=== PATIENT | male | born 1940 | race Caucasian/White ===

== ENCOUNTER → 2020-09-16 12:56 | Outpatient (CLI) | payer OTHER, MEDICARE, SELFPAY ==
--- NOTE | 2020-09-16 13:04 | CT_ITS ---
STUDY: CT CHEST WITHOUT CONTRAST REASON FOR EXAM: Male, 80 years old. HX OF NSCLC. Diabetes. No previous chest surgeries RADIATION DOSAGE (If Supplied By Facility): CTDIvol = ( 17.72 ) mGy, DLP = ( 726.33 ) mGycm TECHNIQUE: Transaxial imaging was performed without the administration of intravenous contrast material. Multiplanar coronal and sagittal images were reformatted. Individualized dose optimization techniques were used for this CT. COMPARISON: Comparison is made with prior study 01/25/2016. FINDINGS: Stable small benign-appearing bilateral axillary lymph nodes. Stable calcified lymph node in the left upper lobe as well as in the left lower lobe. There is evidence of emphysematous changes worse in the upper lobes. Surgical sutures are seen in the right infrahilar region. There is been resection of the nodular density in the right lower lobe. There now is evidence of the airspace disease in the right lower lobe. This may represent either post radiation fibrosis or new infiltrate. Clinical correlation is suggested. Normal heart and pericardium. There are multiple small lymph nodes within the mediastinum, which are normal in size and morphology most compatible with reactive lymph hyperplasia. Calcified left hilar lymph nodes. Normal unenhanced pulmonary arteries. There is atherosclerotic calcification of the aortic arch with tortuosity and elongation of the aortic arch and descending thoracic aorta. There are degenerative changes of the thoracic spine. There is no demonstrated abnormality of the visualized upper abdomen. CT/Chest without Contrast IMPRESSION: Status post resection of a nodule in the right lower lobe with the postoperative changes and airspace disease and bronchial branch in the posterior segment of the right lower lobe. This may represent either post radiation scarring/pneumonitis or early infiltrate. Scattered left calcified granulomas. Electronically Signed: Bennie Ordonez MD at 15:43 EDT , Service support ,
== END ==
DX: Z85.118 Personal history of other malignant neoplasm of bronchus and lung (principal)
CPT/HCPCS: 71250

== ENCOUNTER 2021-08-18 09:35 | Emergency (ER) | payer OTHER, MEDICARE, SELFPAY ==
[2021-08-18 09:35] VITALS: BP 159/99; PULSE 107; RESP 18; TEMP 36.8; O2SAT 91; BMI 37.3
[2021-08-18 09:49] VITALS: BP 135/83; PULSE 92; RESP 18; O2SAT 93
--- NOTE | 2021-08-18 09:49 | EKG12_ITS ---
Test Reason : SOB Blood Pressure : / mmHG Vent. Rate : 105 BPM Atrial Rate : 105 BPM P-R Int : 130 ms QRS Dur : 130 ms QT Int : 376 ms P-R-T Axes : 055 -81 060 degrees QTc Int : 496 ms Sinus tachycardia with Premature atrial complexes Right bundle branch block Left anterior fascicular block Bifascicular block Abnormal ECG Confirmed by MIKI KENNEY, ALF ([id number]), editorial cartoonist MANN MILTON ([id number]) on 08/19/2021 10:20:03 A M Referred By: PASTORA Confirmed By:DAVID LIVINGSTON MD
--- NOTE | 2021-08-18 09:50 | ED.VIS.DYS ---
HPI History of Present Illness Chief Complaint: Shortness of Breath Informant: patient Narrative Narrative: Patient brought by EMS from home due to shortness of breath. Patient wears chronic 2 L of oxygen. He is has a home concentrator runs 24 hours a day. He woke up this morning he was short of breath he states there is a humidifier connection states it was not bubbling he checked the oxygen he did not seem to have enough oxygen coming out. He felt short of breath. He does have portable tanks at home he states one was empty he tried to connect to another one. History of anxiety with his concerns he contacted EMS. Reported on arrival he was in the mid 70s they placed him on 3 L of oxygen to get up in the 90s he was placed back on 2 L on arrival. He reports he had a dry cough for the past 2 days no fevers or headaches. No chest pains no abdominal pain. Remote tobacco. History of lung cancer with partial lobectomy in the past he states diagnosed back in 2010. No current chemotherapy or radiation. He states his breathing is improving currently. States mild anxiety currently with a history of this since he was in his 30s. His supply company is through the [employer]. He states he tried contacting him this morning unable to get through. Reports he is Covid vaccinated with the booster in the last 6 months. [facility] Medical History Anxiety COPD (chronic obstructive pulmonary disease) Former smoker HLD (hyperlipidemia) Hypertension Lung cancer On home oxygen therapy Home Medications Spiriva with HandiHaler 2 puff INHALATION DAILY 01/25/16 [History Last Taken 01/25/16] Tums Ultra 1,177 mg PO PRN PRN 01/25/16 [History Last Taken 01/24/16] aspirin 81 mg PO DAILY@0800 01/25/16 [History Last Taken 01/25/16] budesonide-formoterol [Symbicort] 2 puff INHALATION BID 01/25/16 [History Last Taken 01/25/16] buspirone 10 mg PO TID 01/25/16 [History Last Taken 01/25/16] lisinopril 10 mg PO DAILY 01/25/16 [History Last Taken 01/25/16] multivitamin [Daily Multiple] 1 ea PO DAILY 01/25/16 [History Last Taken 01/25/16] omeprazole 20 mg PO DAILY 01/25/16 [History Last Taken 01/25/16] simvastatin 40 mg PO QHS 01/25/16 [History Last Taken 01/24/16] alprazolam 0.25 mg PO TID PRN PRN #0 01/29/16 [Rx Last Taken 01/24/16] levalbuterol tartrate [Xopenex HFA] 1 puff INHALATION Q4H PRN #1 inh 01/29/16 [Rx Last Taken Unknown] albuterol 2 mcg INHALATION 4X/DAY 08/18/21 [History Last Taken Unknown] azithromycin 500 mg PO Q24 08/18/21 [History Last Taken Unknown] bisacodyl 5 mg PO BID PRN 08/18/21 [History Last Taken Unknown] cyanocobalamin (vitamin B-12) 1,000 mcg PO DAILY 08/18/21 [History Last Taken Unknown] furosemide [Lasix] 10 mg PO DAILY 08/18/21 [History Last Taken Unknown] hydroxyzine pamoate 50 mg PO 4X/DAY 08/18/21 [History Last Taken Unknown] mometasone 2 puff INHALATION BID 08/18/21 [History Last Taken Unknown] prednisone 10 mg PO DAILY 08/18/21 [History Last Taken Unknown] trazodone 100 mg PO QHS 08/18/21 [History Last Taken Unknown] Allergy/AdvReac Type Severity Reaction Status Date / Time No Known Allergies Allergy Verified 01/25/16 16:05 Surgical History History of lobectomy of lung Social History Smoking Status: Former smoker ROS ROS ED Constitutional Constitutional ED: Denies chills, fever(s) or sweats Eyes Eyes: Denies change in vision ENT ENT ED: Denies dysphagia or sore throat Cardiovascular Cardiovascular: Denies chest pain, leg edema, palpitations or racing heartbeat Respiratory/Chest Respiratory/Chest: Reports cough and dyspnea; Denies dyspnea on exertion Gastrointestinal Gastrointestinal: Denies abdominal pain, diarrhea, nausea or vomiting Genitourinary Genitourinary ED: Denies dysuria, hematuria or urinary frequency Musculoskeletal Musculoskeletal: Denies back pain, extremity pain or neck pain Integumentary Denies rash or wounds Neurologic Neurologic: Denies headache(s), paresthesias or weakness EXAM Physical Exam Const Vital Signs: 08/18/21 09:35 08/18/21 09:49 08/18/21 11:55 Temperature 98.3 F Temperature Source Axillary Pulse Rate 107 H 92 92 Respiratory Rate 18 18 20 H Blood Pressure 159/99 H 135/83 H 143/94 H Blood Pressure Mean 119 100 110 Pulse Ox 91 93 95 Oxygen Delivery Method Nasal Cannula Nasal Cannula Nasal Cannula Oxygen Flow Rate (L/min) 2 2 Positive well nourished and well developed Constitutional Narrative: Currently 2 L nasal cannula no respiratory distress. General Appearance ED: well developed and NAD HEENT Reports moist mucous membranes normocephalic and atraumatic Eyes PERRL, EOMs intact bilaterally and conjunctivae normal General Eye ED: Yes normal appearance of both eyes Neck no lymphadenopathy and supple General: Negative for tenderness Chest Wall Chest: Negative for tenderness Resp normal respiratory effort, normal air movement and clear to auscultation bilaterally Effort and Inspection: symmetric chest movement; Negative for respiratory distress Cardio regular rate, regular rhythm and no murmurs Peripheral Pulses: pulses 2+ throughout GI normal to inspection, nondistended, normoactive bowel sounds and non-tender Palpation: Negative for guarding or rebound tenderness present Back/Spine no CVA tenderness and no thoracic nor lumbar tenderness Extremity normal to inspection General Extremety ED: Negative for edema or tenderness General Extremity: Negative for edema Neuro oriented x3 and no sensory deficits noted Sensorium / Orientation: awake and alert Skin no rashes or lesions noted and no wounds MDM MDM MDM Narrative Medical decision making narrative: Patient on his 2 L oxygen is stable pulse ox in the 90s. He was off oxygen when he had symptoms. Chest x-ray negative Covid negative labs are stable. Reevaluation remained stable. I discussed with his daughter over the phone, patient spouse on the phone working [facility] who trouble shot and was able to fix his concentrator at home. Further discussion has been talking about skilled versus rehab here due to increasing weakness recently. I discussed with patient about this. He states he has been feeling weaker not moving around the home as much. Confirmed by daughter. I discussed that he may benefit from rehab for which she agrees. Social work was involved evaluated was able to place him for the emergency department to the rehab center here. Patient discharged to rehab. Lab Data Attestation: I reviewed the patient's lab results. Labs: Laboratory Results - last 24 hr 08/18/21 08/18/21 10:15 10:15 WBC 9.8 RBC 4.12 L Hgb 13.1 Hct 40.3 MCV 97.8 H MCH 31.8 MCHC 32.5 RDW Std Deviation 50.6 H RDW Coeff of Regina 14.0 Plt Count 240 MPV 9.8 Immature Gran % (Auto) 0.400 Neut % (Auto) 55.9 Lymph % (Auto) 36.8 Ferry % (Auto) 5.2 Eos % (Auto) 1.3 Baso % (Auto) 0.4 Absolute Neuts (auto) 5.5 Absolute Lymphs (auto) 3.62 Nucleated RBC % 0 Sodium 141 Potassium 3.7 Chloride 102 Carbon Dioxide 35.0 H Anion Gap 4 L BUN 12 Creatinine 1.27 Estim Creat Clear Calc 45.63 Est GFR (MDRD) Af Amer 70 Est GFR (MDRD) Non-Af 58 L BUN/Creatinine Ratio 9.4 L Glucose 116 H Calcium 9.0 Radiography Chest X-Ray - ED: 1 View, Read by ED Physician and Read by Radiologist Diagnostic Testing: Clinical Impression(s) from Imaging Studies Chest X-Ray 08/18/21 10:20 IMPRESSION: Hyperinflation and COPD with her emphysematous changes in the right upper lobe. Prior right infrahilar surgical intervention with stable scarring at the lung bases. Electronically Signed: Bennie Ordonez MD at 10:35 EST , EKG Initial EKG: Attestation: I personally reviewed and interpreted this EKG as follows: Comments: Sinus rhythm 105, no ST or T wave changes. 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 There is a right bundle branch block. Compared to EKG in 2016 right bundle branch is new similar changes with left anterior fascicular block. Prior EKG tracings: available for review Discharge Plan Triage Chief Complaint: Shortness of Breath ED Provider: Karl Mathur Dx/Rx/DC Orders Clinical Impression: Acute dyspnea, Oxygen dependent, Weakness Instructions: ED Dyspnea Prescriptions: No Action buspirone 5 MG tablet 10 mg PO TID RF: 0 aspirin 325 MG tablet 81 mg PO DAILY@0800 RF: 0 simvastatin 40 MG tablet 40 mg PO QHS RF: 0 lisinopril 10 MG tablet 10 mg PO DAILY RF: 0 omeprazole 20 MG capsule 20 mg PO DAILY RF: 0 Spiriva with HandiHaler 1 PUFF inhaler 2 puff inhalation DAILY RF: 0 Tums Ultra 1,177 MG tablet,chewable 1,177 mg PO PRN PRN (Reason: GERD) RF: 0 budesonide-formoterol [Symbicort] 1 INHALER inhaler 2 puff inhalation BID RF: 0 multivitamin [Daily Multiple] 1 EACH tablet 1 ea PO DAILY RF: 0 levalbuterol tartrate [Xopenex HFA] 1 PUFF HFA aerosol inhaler 1 puff inhalation Q4H PRN (Reason: Sob &/Or Wheezing) Qty: 1 RF: 0 alprazolam 0.25 MG tablet 0.25 mg PO TID PRN PRN (Reason: Anxiety) Qty: 0 RF: 0 cyanocobalamin (vitamin B-12) 1,000 mcg Tablet 1,000 mcg PO DAILY RF: 0 hydroxyzine pamoate 50 mg Capsule 50 mg PO 4X/DAY RF: 0 trazodone 100 mg Tablet 100 mg PO QHS RF: 0 furosemide [Lasix] 20 mg Tablet 10 mg PO DAILY RF: 0 albuterol 90 mcg/actuation Aerosol 2 mcg INHALATION 4X/DAY RF: 0 bisacodyl 5 mg Tablet 5 mg PO BID PRN (Reason: Constipation) RF: 0 mometasone 200 mcg/actuation Hfa Aerosol Inhaler 2 puff INHALATION BID RF: 0 azithromycin 250 MG tablet 500 mg PO Q24 RF: 0 prednisone 10 MG tablets,dose pack 10 mg PO DAILY RF: 0 [facility] - Disposition Disposition: [facility] Facility Discharge Location: Other SNF not listed Discharge Date/Time: 08/18/21 12:27
--- NOTE | 2021-08-18 10:00 | ED.RN ---
CALLED DAUGHTER AND SHE IS MAKING PHONE CALLS TO GET THE OXYGEN COMPANY TO COME INSPECT THE CONCENTRATOR
--- NOTE | 2021-08-18 10:06 | ED.RN ---
pt ambulated to down mason on 2l. when came back was 84% on 2l and was more sob. pt reports as feeling anxiety hr 122 on monitor. cps in for ekg. covid sent
--- NOTE | 2021-08-18 10:20 | RAD_ITS ---
STUDY: X-RAY CHEST REASON FOR EXAM: Male, 81 years old. Cough TECHNIQUE: Single AP portable view of the chest. COMPARISON: Comparison is made with prior study dated 01/29/2016. FINDINGS: EKG electrodes are seen. There is hyperinflation of the lungs consistent with chronic obstructive lung disease (COPD). Surgical clips are seen in the right infrahilar region in keeping with prior pulmonary surgery. Stable scarring at the lung bases. There is no demonstrated pleural abnormality. Normal size heart. Normal mediastinum and deonte. Normal visualized pulmonary arteries. There is atherosclerotic calcification of the aortic arch with tortuosity. Normal visualized thoracic spine. Normal visualized ribs, clavicles, and shoulders. There is no demonstrated abnormality of the visualized soft tissue structures of the upper abdomen. RAD/Chest 1 View (Portable) IMPRESSION: Hyperinflation and COPD with her emphysematous changes in the right upper lobe. Prior right infrahilar surgical intervention with stable scarring at the lung bases. Electronically Signed: Bennie Ordonez MD at 10:35 EST ,
[2021-08-18 10:29] LABS: Absolute Lymphocyte Count 3.62 X10^3/uL (0.83-4.51); Absolute Neutrophil Count 5.5 X10^3/uL (2.0-7.7); Basophil# 0.04 X10^3/uL; Basophil% 0.4 % (0-1); Eosinophil# 0.13 X10^3/uL; Eosinophils% 1.3 % (0-5); Hematocrit 40.3 % (40-54); Hemoglobin 13.1 g/dL (13.0-16.5); Lymphocyte # 3.62 X10^3/ul (0.83-4.51); Lymphocyte % 36.8 % (19-41); Mean Corp Hgb Conc 32.5 g/dL (32-36); Mean Corpuscular Hgb 31.8 pg (27.0-32.0); Mean Corpuscular Volume 97.8 fL (80-94); Mean Platelet Vol. 9.8 fl (6.2-12.0); Monocyte# 0.51 X10^3/uL; Monocyte% 5.2 % (0-10); NRBC Flagged by Analyzer 0 % (0-5); Neutrophil # 5.49 X10^3/uL (2.7-7.7); Neutrophil % 55.9 % (47-70); Platelet Count 240 K/mm3 (150-450); RBC Distribution Width SD 50.6 fl (35.1-43.9); Red Blood Count 4.12 M/mm3 (4.6-6.2); White Blood Count 9.8 K/mm3 (4.4-11.0)
[2021-08-18 10:42] LABS: Anion Gap 4 (5-15); BUN 12 mg/dL (7-18); BUN/Creat Ratio 9.4 RATIO (10-20); Chloride 102 mmol/L (98-107); Creatinine, Serum 1.27 mg/dL (0.70-1.30); EST Glomerular Filtration Rate 58 mL/min (>60); Est Glom Filt Rate - Afr Amer 70 mL/min (>60); Estimated Creatinine Clearance 45.63 ml/min; Glucose 116 mg/dL (74-106); Potassium 3.7 mmol/L (3.5-5.1); Sodium Level 141 mmol/L (136-145)
--- NOTE | 2021-08-18 11:53 | ED.RN ---
bong shabnam in to talk with pt about placement needs or more help and services for at home. poa granddaughter tanya spoke with and updated
[2021-08-18 11:55] VITALS: BP 143/94; PULSE 92; RESP 20; O2SAT 95
--- NOTE | 2021-08-18 12:15 | CM.ED ---
Social Work Consult: snf placement Referral source: Dr. Mathur Met with patient in room. Introduced self and social media intern role. Patient agreeable to speak with this social media intern. This social media intern broached topic of care home placement for patient. Patient reports to be concerned about returning to home. Patient reports to live in a mobile home with a ramp and some stairs to enter. Patient lives with spouse, Amanda. Patient reports to have oxygen set up in the home already and to not be sure who the DME company is. Patient reports to be fully vaccinated with boosters. Patient reports that patient has been getting weaker and weaker over the past few weeks. Patient concerned that if patient would return to home I would keep getting worse. Patient reports to have anxiety since age 32 and this does not help anything. Patient denies history of suicidality or current suicidal thoughts. Patient reports that Health Care Power of Manager Plant is Elzbieta Castillo (granddaughter). Patient reports to have a rollaider at home but to not use this. This social media intern provided patient with list of in-network nursing facility that are local to patient geographical region. Patient request for referral to be placed to [facility], patient insurance is currently waiving pre-cert. Patient request for this social media intern to update patient daughter, Blanca on status of case. Telephone call to [facility], [place]. There are open beds and patient is accepted. This social media intern updated Dr. Mathur, Nursing staff, patient, and patient daughter that patient has been accepted to TCU from ED. PLAN: Discharge to TCU. Kerline ELLER, JUNIOR
[2021-08-18] MEDS: hydrOXYzine PAM 25 MG Capsule PO (12:17)
[2021-08-18] MEDS: busPIRone 5 MG Tablet 10 MG PO (12:17)
--- NOTE | 2021-08-18 12:27 | ED.RN ---
PT TAKEN TO TCU 14, REPORT CALLED TO RN
== END 2021-08-18 12:27 | disposition skilled nursing facility (03) ==
LOC: ED 10:27
PROVIDERS: Emergency Provider Emergency Medicine; Visit Provider Emergency Medicine
DX: R06.00 Dyspnea, unspecified (principal); J44.9 Chronic obstructive pulmonary disease, unspecified; R53.1 Weakness; E78.5 Hyperlipidemia, unspecified; F41.9 Anxiety disorder, unspecified; I10 Essential (primary) hypertension; Z87.891 Personal history of nicotine dependence; Z99.81 Dependence on supplemental oxygen; Z79.82 Long term (current) use of aspirin; Z79.899 Other long term (current) drug therapy
CPT/HCPCS: 71045; 80048; 85025; 87426; 93005; 99284; A4216

== ENCOUNTER 2021-08-18 13:00 | Inpatient (IN) | payer MEDICARE, SELFPAY ==
[2021-08-18 13:11] VITALS: BP 156/87; PULSE 94; RESP 20; TEMP 36.5; O2SAT 96; BMI 36.0
[2021-08-18 13:27] VITALS: O2SAT 2
[2021-08-18] MEDS: hydrOXYzine PAM 25 MG Capsule 50 MG PO (16:34)
[2021-08-18] MEDS: Magnesium Citrate 300 ML PO (18:07)
[2021-08-18] MEDS: Fluticasone/Salmeterol 232-14 Inhaler 1 PUFF INHALATION (18:41)
[2021-08-18] MEDS: 0.9% Saline Lock 10 ML Syringe IV (18:41)
--- NOTE | 2021-08-18 19:12 | HP.PCM_ITS ---
HPI - General General Date of Admission: 08/18/21 HPI Narrative 08/18/2021 FARHEEN MERAZ, is a 81 Male who presents to [facility] Department with shortness of breath. Short of breath, chronic oxygen 2 liters per nasal cannula. Oxygen concentrator malfunction, anxious, called EMS. Pulsox 70% when EMS arrived. Pulsox 90's on 2 liters oxygen, dry cough. Chest X-ray negative, covid negative, labs stable. [facility]. Increasing weakness recently, not moving around home as usual. 08/18/2021 Admit to TCU with debility, here for rehabilitation, strengthening, prior to discharge home with . On arrival, resident complains of constipation, and bleeding hemorrhoids. [facility], [facility] Medical History Anxiety COPD (chronic obstructive pulmonary disease) Former smoker HLD (hyperlipidemia) Hypertension Lung cancer On home oxygen therapy Home Medications Spiriva with HandiHaler 2 puff INHALATION DAILY 01/25/16 [History Last Taken 01/25/16] Tums Ultra 1,177 mg PO PRN PRN 01/25/16 [History Last Taken 01/24/16] aspirin 81 mg PO DAILY@0800 01/25/16 [History Last Taken 01/25/16] budesonide-formoterol [Symbicort] 2 puff INHALATION BID 01/25/16 [History Last Taken 01/25/16] buspirone 10 mg PO TID 01/25/16 [History Last Taken 01/25/16] lisinopril 10 mg PO DAILY 01/25/16 [History Last Taken 01/25/16] multivitamin [Daily Multiple] 1 ea PO DAILY 01/25/16 [History Last Taken 01/25/16] omeprazole 20 mg PO DAILY 01/25/16 [History Last Taken 01/25/16] simvastatin 40 mg PO QHS 01/25/16 [History Last Taken 01/24/16] alprazolam 0.25 mg PO TID PRN PRN #0 01/29/16 [Rx Last Taken 01/24/16] levalbuterol tartrate [Xopenex HFA] 1 puff INHALATION Q4H PRN #1 inh 01/29/16 [Rx Last Taken Unknown] albuterol 2 mcg INHALATION 4X/DAY 08/18/21 [History Last Taken Unknown] azithromycin 500 mg PO Q24 08/18/21 [History Last Taken Unknown] bisacodyl 5 mg PO BID PRN 08/18/21 [History Last Taken Unknown] cyanocobalamin (vitamin B-12) 1,000 mcg PO DAILY 08/18/21 [History Last Taken Unknown] furosemide [Lasix] 10 mg PO DAILY 08/18/21 [History Last Taken Unknown] hydroxyzine pamoate 50 mg PO 4X/DAY 08/18/21 [History Last Taken Unknown] mometasone 2 puff INHALATION BID 08/18/21 [History Last Taken Unknown] prednisone 10 mg PO DAILY 08/18/21 [History Last Taken Unknown] trazodone 100 mg PO QHS 08/18/21 [History Last Taken Unknown] Allergy/AdvReac Type Severity Reaction Status Date / Time No Known Allergies Allergy Verified 01/25/16 16:05 Surgical History History of lobectomy of lung Social History (Updated 08/18/21 @ 19:[address] Geovany Gil MD) household members: spouse Smoking Status: Former smoker alcohol intake: never substance use type: does not use ROS Constitutional Constitutional: Denies chills, fever(s) or weight gain ENT HEENT: Denies headache(s), nasal congestion or nasal discharge Cardiovascular Cardiovascular: Denies chest pain or palpitations Respiratory/Chest Respiratory/Chest: Denies cough, excessive phlegm production or shortness of breath with exertion Gastrointestinal Gastrointestinal: Denies abdominal pain, nausea or vomiting Genitourinary Genitourinary: Denies dysuria Musculoskeletal Musculoskeletal: Denies joint pain or joint swelling Integumentary Integumentary: Denies rash or wounds Neurologic Neurologic: Denies focal weakness, numbness or tingling Psychiatric Psychiatric: Denies anxiety, auditory hallucinations, depression, homicidal ideation or suicidal ideation Vital Signs Vital Signs Vital Signs: 08/18/21 13:11 08/18/21 13:27 08/18/21 15:10 Temperature 97.7 F L Temperature Source Temporal Pulse Rate 94 Pulse Rhythm Regular Pulse Strength Normal (2+) Respiratory Rate 20 H Respiratory Effort Normal Non-Labored Respiratory Depth Normal Respiratory Pattern Normal Blood Pressure 156/87 H Blood Pressure Mean 110 Blood Pressure Source Monitor Blood Pressure Position Sitting Blood Pressure Location Left Arm Pulse Ox 96 2 Oxygen Delivery Method Nasal Cannula Nasal Cannula Oxygen Flow Rate (L/min) 2 2 08/18/21 15:25 Temperature Temperature Source Pulse Rate Pulse Rhythm Pulse Strength Respiratory Rate Respiratory Effort Respiratory Depth Respiratory Pattern Blood Pressure Blood Pressure Mean Blood Pressure Source Blood Pressure Position Blood Pressure Location Pulse Ox Oxygen Delivery Method Oxygen Flow Rate (L/min) 2 Weight Weight: 107.411 kg Body Mass Index (BMI) 36.0 Physical Exam Const alert and oriented x3 General Appearance: cooperative HEENT normocephalic Eyes PERRL and EOMs intact bilaterally Neck supple, no JVD and no carotid bruits Chest Chest Narrative: Decreased breath sounds at bases. Resp normal respiratory effort, normal air movement and clear to auscultation bilaterally Cardio regular rate and regular rhythm GI normal to inspection, nondistended, normoactive bowel sounds, non-tender and non-distended Extremity normal capillary refill General Extremity: Negative for edema Skin no rashes or lesions noted General Skin Exam: no breakdown Psych affect normal Appearance: appropriate Assessment & Plan Assessment/Plan (1) Debility: (2) Acute respiratory failure with hypoxia: (3) Anxiety: (4) Lung cancer: (5) Status post partial lobectomy of lung: (6) Weakness: (7) Chronic obstructive pulmonary disease: (8) Hypertension: (9) Gastroesophageal reflux disease: (10) Hyperlipidemia: (11) Insomnia: (12) Vitamin B12 deficiency: (13) Edema: PLAN: 81 year old male with below past medical history significant for copd, anxiety, presented to [facility] ER with shortness of breath after home oxygen equipment failure, admitted to TCU with debility, here for rehabilitation, strengthening, prior to discharge home with . * Debility - PT/OT. * Cognition - ST. * Pain - Tylenol 1000mg q6h prn pain (1-10). * Bowel - Miralax 17gm daily, senna/colace 2 tablets bid, dulcolax 5mg bid prn, Magnesium citrate 300ml po x 1 bottle for cleanout. * Adult immunization - Administer prevnar 20, fluzone, covid19 vaccine as appropriate. * DVT prophylaxis - Hold, hemorrhoidal bleeding. * COPD - Advair 232-14 1 puff q12h, albuterol 2.5mg q2h prn, oxygen 2 liters per nasal cannula. * CV prophylaxis - Aspirin 81mg daily. * Hyperlipidemia - [id number] qhs. * Anxiety - Buspirone 10mg tid, Hydroxyzine 50mg /day prn. * Indigestion - calcium carbonate 500mg tid prn. * Vitamin d deficiency - D3 25mcg daily. * Vitamin b12 deficiency - B12 1000mcg daily. * Edema - Lasix 10mg daily, * Hemorrhoids - Anusol 25mg pr bid prn. * Hypertension - Lisinopril 10mg daily. * Nutrition - MVI daily. * GERD - Pantoprazole 20mg daily. * Insomnia - Trazodone 100mg qhs.
--- NOTE | 2021-08-18 21:06 | PHA.CONS1_ITS ---
Progress Note - Pharmacy Subjective: [] TCU Admission Objective: Allergies No Known Allergies Allergy (Verified 01/25/16 16:05) Current Medications Generic Name Dose Route Start Last Admin Trade Name Leona PRN Reason Stop Dose Admin Albuterol Sulfate 2.5 mg 08/18/21 17:28 Albuterol 2.5 Mg/3 Ml Vial.Neb. INHALATION Q2H PRN PRN SHORTNESS OF BREATH Aspirin 81 mg 08/19/21 08:00 Aspirin 325 Mg Tablet PO DAILY@0800 [facility] Atorvastatin Calcium 20 mg 08/18/21 22:00 Atorvastatin Calcium 20 Mg Tablet PO QHS [facility] Bisacodyl 5 mg 08/18/21 14:02 Bisacodyl 5 Mg Tablet PO BID PRN Constipation Buspirone HCl 10 mg 08/18/21 22:00 Buspirone 5 Mg Tablet PO TID [facility] Calcium Carbonate 500 mg 08/18/21 17:44 Calcium Carbonate 500 Mg Tablet PO TID PRN INDIGESTION Cholecalciferol 25 mcg 08/19/21 06:00 Cholecalciferol (Vit D3) 25 Mcg Tablet (1,000 Units) PO DAILY [facility] Cyanocobalamin 1,000 mcg 08/19/21 08:00 Cyanocobalamin 500 Mcg Tablet PO DAILYCM [facility] Furosemide 10 mg 08/19/21 06:00 Furosemide 20 Mg Tablet PO DAILY [facility] Hydrocortisone Acetate 25 mg 08/18/21 17:39 Hydrocortisone 25 Mg Suppository RC BID PRN PRN Hemorrhoids Hydroxyzine Pamoate 50 mg 08/18/21 17:26 Hydroxyzine Emily 25 Mg Capsule PO 4X/DAY PRN ANXIETY Lisinopril 10 mg 08/19/21 06:00 Lisinopril 10 Mg Tablet PO DAILY [facility] Multivitamins 1 tablet 08/19/21 08:00 Multivitamins,Therapeutic Tablet PO DAILYCM [facility] Pantoprazole Sodium 20 mg 08/19/21 06:00 Pantoprazole Sodium 20 Mg Tablet PO DAILY [facility] Polyethylene Glycol 17 gm 08/19/21 06:00 Polyethylene Glycol 3350 17 Gm Packet PO DAILY [facility] Fluticasone/Salmeterol 1 puff 08/18/21 18:00 08/18/21 18:41 Fluticasone/Salmeterol 232-14 Inhaler INHALATION 1 puff Q12 [facility] Administration Senna/Docusate Sodium 2 tablet 08/18/21 19:45 Senna/Docusate Sodium 1 Tablet PO BID ILYA Sodium Chloride 10 - 40 ml 08/18/21 14:56 08/18/21 18:41 0.9% Saline Lock 10 Ml Syringe IV 10 ml UD PRN Administration SALINE FLUSH Trazodone HCl 100 mg 08/18/21 22:00 Trazodone 100 Mg Tablet PO QHS [facility] Tuberculin PPD 0.1 ml 08/19/21 10:00 Tuberculin,Purif.Prot.Deriv. 50 Tu/Ml Vial ID 08/19/21 10:01 X1 ONE Tuberculin PPD 0.1 ml 08/26/21 10:00 Tuberculin,Purif.Prot.Deriv. 50 Tu/Ml Vial ID 08/26/21 10:01 X1 ONE Problem List (Last Reviewed 08/18/21 @ 19:[address] Geovany Gil MD) Edema (Acute) Vitamin B12 deficiency (Acute) Insomnia (Acute) Hyperlipidemia (Acute) Gastroesophageal reflux disease (Acute) Hypertension (Chronic) Chronic obstructive pulmonary disease (Chronic) Acute respiratory failure with hypoxia (Acute) Debility (Acute) Anxiety (Chronic) Lung cancer (Chronic) Status post partial lobectomy of lung (Chronic) Weakness (Acute) Vital Signs Temp Pulse Resp BP Pulse Ox 97.7 F L 94 20 H 156/87 H 2 08/18/21 13:11 08/18/21 13:11 08/18/21 13:11 08/18/21 13:11 08/18/21 13:27 Oxygen Flow Rate (L/min) 2 Oxygen Delivery Method Nasal Cannula Weight: 107.411 kg Body Mass Index (BMI) 36.0 Assessment/Plan: *1) Pain: The H+P lists Acetaminophen 1000mg q6h prn for pain 1-10. I could not find Acetaminophen on the pt's prescription profile. Please consider updating the H+P. Thanks 2) GERD: Pantoprazole 20mg po daily. Please continue to monitor for signs/symptoms of GERD *3) Hyperlipidemia: Atorvastatin 20mg po qhs. I could not find a recent Lipid Panel or LFT in the pt's chart. Please consider a yearly Lipid Panel and LFT while the pt is taking a statin. Thanks 4) Hypertension: Lisinopril 10mg po daily. Pt's K+ is 3.7, SrCr is 1.27, and BUN is 12. Please continue to monitor labs. Pt's last BP was 156/87. Please continue to monitor pt's bp. 5) Edema: Furosemide 10mg po daily. Pt's Na is 141, and K+ is 3.7. Please continue to monitor labs. Please continue to monitor for signs/symptoms of swelling/edema. 6) COPD: Albuterol Nebules 2.5mg via nebulizer q2h prn for shortness of breath, Fluticasone/Salmeterol 232-14 inhaler. Please ensure that the pt rinses, gargles, and spits after each use of the Fluticasone/Salmeterol inhaler to help avoid oral thrush. Please continue to monitor prn usage and for signs/symptoms of shortness of breath. Psychotropic Medications: Buspirone 10mg po tid for anxiety. Pt was on Alprazolam 0.25mg po tid prn for anxiety in addition to the buspirone at home. The alprazolam was held upon admission. No GDR recommended due to recent holding of alprazolam. Hydroxyzine 50mg 4 times a day as needed for anxiety. The hydroxyzine was switched from schedule to prn upon admission. No GDR recommended Trazodone 100mg po qhs for insomnia. Due to the recent changes in the pt's anxiety medications, will hold off on GDR recommendations. Possible GDR 10/2021 Unnecessary Medications: Bowel Regimen: Bisacodyl 5mg po bid prn for constipation, Miralax 17gm po daily, Senna/Docusate 2 tablets po bid. Please continue to monitor prn usage an d for signs/symptoms of constipation/diarrhea. Date of Note:: 08/18/21
[2021-08-18] MEDS: Senna/Docusate Sodium 1 Tablet 2 TABLET PO (22:17)
[2021-08-18] MEDS: Atorvastatin Calcium 20 MG Tablet PO (22:18)
[2021-08-18] MEDS: busPIRone 5 MG Tablet 10 MG PO (22:18)
[2021-08-18] MEDS: traZODone 100 MG Tablet PO (22:18)
[2021-08-19] MEDS: busPIRone 5 MG Tablet 10 MG PO ×3 (04:30→22:03)
[2021-08-19] MEDS: Furosemide 20 MG Tablet 10 MG PO (04:30)
[2021-08-19] MEDS: Fluticasone/Salmeterol 232-14 Inhaler 1 PUFF INHALATION ×2 (04:30→17:59)
[2021-08-19] MEDS: Pantoprazole Sodium 20 MG Tablet PO (04:31)
[2021-08-19] MEDS: Cholecalciferol (VIT D3) 25 MCG TABLET (1,000 UNITS) PO (04:32)
[2021-08-19] MEDS: Lisinopril 10 MG Tablet PO (04:32)
[2021-08-19] MEDS: Senna/Docusate Sodium 1 Tablet 2 TABLET PO ×2 (04:36→17:53)
[2021-08-19] MEDS: Polyethylene Glycol 3350 17 GM PACKET PO (04:36)
[2021-08-19 04:48] VITALS: BP 154/78; PULSE 76; RESP 18; TEMP 36.6; O2SAT 94
[2021-08-19 05:51] LABS: Absolute Lymphocyte Count 3.06 X10^3/uL (0.83-4.51); Absolute Neutrophil Count 3.5 X10^3/uL (2.0-7.7); Basophil# 0.03 X10^3/uL; Basophil% 0.4 % (0-1); Eosinophil# 0.12 X10^3/uL; Eosinophils% 1.6 % (0-5); Hematocrit 34.8 % (40-54); Hemoglobin 11.5 g/dL (13.0-16.5); Lymphocyte # 3.06 X10^3/ul (0.83-4.51); Lymphocyte % 41.9 % (19-41); Mean Corpuscular Hgb 31.5 pg (27.0-32.0); Mean Corpuscular Volume 95.3 fL (80-94); Mean Platelet Vol. 9.8 fl (6.2-12.0); Monocyte# 0.58 X10^3/uL; Monocyte% 7.9 % (0-10); NRBC Flagged by Analyzer 0 % (0-5); Neutrophil % 47.9 % (47-70); Platelet Count 213 K/mm3 (150-450); RBC Distribution Width CV 13.7 % (11.6-14.6); RBC Distribution Width SD 48.8 fl (35.1-43.9); Red Blood Count 3.65 M/mm3 (4.6-6.2); White Blood Count 7.3 K/mm3 (4.4-11.0)
[2021-08-19 06:12] LABS: Anion Gap 4 (5-15); BUN 12 mg/dL (7-18); BUN/Creat Ratio 11.9 RATIO (10-20); Calcium,Total 8.7 mg/dL (8.5-10.1); Chloride 102 mmol/L (98-107); Creatinine, Serum 1.01 mg/dL (0.70-1.30); EST Glomerular Filtration Rate 76 mL/min (>60); Est Glom Filt Rate - Afr Amer 92 mL/min (>60); Estimated Creatinine Clearance 57.38 ml/min; Glucose 127 mg/dL (74-106); Potassium 3.4 mmol/L (3.5-5.1); Sodium Level 140 mmol/L (136-145)
[2021-08-19 06:30] VITALS: O2SAT 94
[2021-08-19] MEDS: Potassium Chloride Oral Tablet 20 MEQ PO (08:21)
[2021-08-19] MEDS: Multivitamins,Therapeutic Tablet 1 TABLET PO (08:22)
[2021-08-19] MEDS: Cyanocobalamin 500 MCG Tablet 1000 MCG PO (08:23)
[2021-08-19] MEDS: Aspirin E.C. 81 MG Tablet PO (08:30)
[2021-08-19] MEDS: Tuberculin,Purif.prot.deriv. 50 TU/ML Vial 0.1 ML ID (12:10)
[2021-08-19] MEDS: Calcium Carbonate 500 MG Tablet PO (12:16)
[2021-08-19 14:04] VITALS: BP 143/85; PULSE 87; RESP 10; TEMP 37; O2SAT 94
--- NOTE | 2021-08-19 15:00 | CASEMGMT ---
Addendum entered by Telma Smith 08/19/21 15:06: requesting referral to Palliative. Order entered and referral made via email to [facility]. Original Note: Social Work Met with patient to finish initial assessment. Pt confirmed full code code status. Pt is active with several [place] specialists. Explained [facility] insurance with [employer] 08/23 and continued stay is not guaranteed with each review. The goal is for pt to return home with . However, pt disclosed they have a toxic relationship but have been for 66 years. Pt confirms granddaughter is the primary contact to keep informed of updates and DC plans. SW to continue to follow for support and DC plans. Telma Smith, RAFTIA BRAND MANAGER
[2021-08-19 22:00] VITALS: PULSE 86; RESP 18; O2SAT 2
[2021-08-19] MEDS: traZODone 100 MG Tablet PO (22:03)
[2021-08-19] MEDS: Atorvastatin Calcium 20 MG Tablet PO (22:03)
[2021-08-20] MEDS: busPIRone 5 MG Tablet 10 MG PO ×3 (05:33→21:26)
[2021-08-20] MEDS: Furosemide 20 MG Tablet 10 MG PO (05:33)
[2021-08-20] MEDS: Pantoprazole Sodium 20 MG Tablet PO (05:34)
[2021-08-20] MEDS: Senna/Docusate Sodium 1 Tablet 2 TABLET PO (05:34)
[2021-08-20] MEDS: Cholecalciferol (VIT D3) 25 MCG TABLET (1,000 UNITS) PO (05:34)
[2021-08-20] MEDS: Lisinopril 10 MG Tablet PO (05:35)
[2021-08-20 06:24] LABS: Anion Gap 3 (5-15); BUN 11 mg/dL (7-18); Calcium,Total 8.8 mg/dL (8.5-10.1); Chloride 103 mmol/L (98-107); EST Glomerular Filtration Rate 69 mL/min (>60); Est Glom Filt Rate - Afr Amer 83 mL/min (>60); Estimated Creatinine Clearance 52.68 ml/min; Glucose 117 mg/dL (74-106); Potassium 3.6 mmol/L (3.5-5.1); Sodium Level 141 mmol/L (136-145)
[2021-08-20 07:29] VITALS: O2SAT 94
[2021-08-20] MEDS: Cyanocobalamin 500 MCG Tablet 1000 MCG PO (09:32)
[2021-08-20] MEDS: Multivitamins,Therapeutic Tablet 1 TABLET PO (09:32)
[2021-08-20] MEDS: Fluticasone/Salmeterol 232-14 Inhaler 1 PUFF INHALATION ×2 (09:32→17:04)
[2021-08-20] MEDS: Aspirin E.C. 81 MG Tablet PO (09:33)
[2021-08-20 09:51] VITALS: PULSE 92; RESP 16; O2SAT 95
--- NOTE | 2021-08-20 13:28 | NURSING ---
CALLED DR YOUSSEF'S OFFICE FOR CONSULT. LEFT MESSAGE TO CALL BACK.
--- NOTE | 2021-08-20 15:04 | NURSING ---
Resident and granddaughter, Elzbieta, notified of a resident and staff member testing positive for COVID.
[2021-08-20 16:00] VITALS: BP 160/92; PULSE 91; RESP 12; TEMP 36.8; O2SAT 93
--- NOTE | 2021-08-20 17:14 | PCM.CONS.P ---
Assessment & Plan Assessment/Plan (1) Edema: (2) Insomnia: (3) Hyperlipidemia: (4) Gastroesophageal reflux disease: (5) Hypertension: (6) Chronic obstructive pulmonary disease: (7) Acute respiratory failure with hypoxia: (8) Debility: (9) Anxiety: (10) Status post partial lobectomy of lung: (11) Lung cancer: PLAN: FARHEEN MERAZ, is a 81 Male who was referred to [facility] for symptoms related to worsening COPD, anxiety and past history of lung cancer. If patient agrees to Palliative care, plan would be as follow: 1) Dyspnea/COPD/Hx of Lung Ca/edema/anxiety: Multifactorial with current reported anxiety: Palliative would follow and monitor and educate on chronic symptom management. Encourage regular use of maintenance inhalers and education on early diagosis of exacerbation of COPD. Palliative could provide additional support for anxiety and manage medications related if needed. Reports issues with spouse. Could benefit from additional support with Annmarie WATSON. 2) Debility: PT/OT and may require additional HHC at discharge home. 3)HTN, Hyperlipidemia, GERD, Insomnia, Hx of Lung Ca: Complicates overall care, management and prognosis. Defer to PCP for management Thank you for the opportunity to participate in this patient's care, please do not hesitate to contact [facility] with any further questions or concerns. Palliative direct line is [phone]. Palliative brochure and contact number given. Patient to think about services. We will follow up after discharge. Greater than 50% of F2F visit dedicated to education and counseling of palliative care services, medications, comorbid conditions and potential assistance with management, and plan of care moving forward. Start time: 4:35 End time: 5:15 HPI Consult Data Date of Consult: 08/20/21 HPI Narrative HPI Narrative: FARHEEN MERAZ, (Karl) is a 81 Male who was referred to [facility] Palliative for symptoms related to worsening COPD and past history of nonsmall cell lung cancer. Farheen presented to [facility] Emergency Department on 08/18/21 with shortness of breath. He wears 2 liters of oxygen chronically and reportedly experienced concentrator malfunction which caused increased dyspnea and anxiety, resulting in a call to EMS. Pulse ox was in the 70s when EMS arrived. Titrated him to 3 liters to get sats in the 90s then back to 2 liters. History of lung cancer with partial lobectomy in the past he states diagnosed back in 2010. No current chemotherapy or radiation. Chest X-ray negative, Covid negative, labs stable.VA fixed concentrator at home. Reports he is Covid vaccinated with the booster in the last 6 months. EKG Sinus rhythm 105, no ST or T wave changes. 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 There is a right bundle branch block. The right bundle branch block is new. Reported increased weakness and not moving around his house as usual. Case discussed with patient and his granddaughter and agreement to admission to TCU for rehabilitation, strengthening, prior to discharge home with . Pt confirmed full code code status. Pt is active with several [place] specialists. Explained [facility] insurance with [employer] 08/23 and continued stay is not guaranteed with each review. The goal is for pt to return home with . However, pt disclosed they have a toxic relationship but have been for 66 years. Pt confirms granddaughter is the primary contact to keep informed of updates and DC plans. Seen today sitting shirtless on the edge of his bed Oxygen per nasal cannula. Very [place], alert oriented and pleasant. Reports that he is breathing so much better. His concentrator having issues really amped up his anxiety. Palliative program discussed and brochure given with contact information. Patient is a and gets his care from the [place] in [facility]. He is no longer driving so transportation will be an issue. Able to ambulate with a walker from the bed to chair, otherwise he needs to ask for help to get to the bathroom. Denies any dizziness, mental status changes, chest pain, dyspnea is improved, denies n/v, constipation, abdominal pain. [facility] Medical History Anxiety COPD (chronic obstructive pulmonary disease) Former smoker HLD (hyperlipidemia) Hypertension Lung cancer On home oxygen therapy Home Medications Spiriva with HandiHaler 2 puff INHALATION DAILY 01/25/16 [History Last Taken 01/25/16] Tums Ultra 1,177 mg PO PRN PRN 01/25/16 [History Last Taken 01/24/16] aspirin 81 mg PO DAILY@0800 01/25/16 [History Last Taken 01/25/16] budesonide-formoterol [Symbicort] 2 puff INHALATION BID 01/25/16 [History Last Taken 01/25/16] buspirone 10 mg PO TID 01/25/16 [History Last Taken 01/25/16] lisinopril 10 mg PO DAILY 01/25/16 [History Last Taken 01/25/16] multivitamin [Daily Multiple] 1 ea PO DAILY 01/25/16 [History Last Taken 01/25/16] omeprazole 20 mg PO DAILY 01/25/16 [History Last Taken 01/25/16] simvastatin 40 mg PO QHS 01/25/16 [History Last Taken 01/24/16] alprazolam 0.25 mg PO TID PRN PRN #0 01/29/16 [Rx Last Taken 01/24/16] levalbuterol tartrate [Xopenex HFA] 1 puff INHALATION Q4H PRN #1 inh 01/29/16 [Rx Last Taken Unknown] albuterol 2 mcg INHALATION 4X/DAY 08/18/21 [History Last Taken Unknown] azithromycin 500 mg PO Q24 08/18/21 [History Last Taken Unknown] bisacodyl 5 mg PO BID PRN 08/18/21 [History Last Taken Unknown] cyanocobalamin (vitamin B-12) 1,000 mcg PO DAILY 08/18/21 [History Last Taken Unknown] furosemide [Lasix] 10 mg PO DAILY 08/18/21 [History Last Taken Unknown] hydroxyzine pamoate 50 mg PO 4X/DAY 08/18/21 [History Last Taken Unknown] mometasone 2 puff INHALATION BID 08/18/21 [History Last Taken Unknown] prednisone 10 mg PO DAILY 08/18/21 [History Last Taken Unknown] trazodone 100 mg PO QHS 08/18/21 [History Last Taken Unknown] Allergy/AdvReac Type Severity Reaction Status Date / Time No Known Allergies Allergy Verified 01/25/16 16:05 Surgical History History of lobectomy of lung Social History household members: spouse Smoking Status: Former smoker alcohol intake: never substance use type: does not use ROS Constitutional Constitutional: Reports systems reviewed and no addt'l complaints, except as documented Cardiovascular Cardiovascular: Reports systems reviewed and no addt'l complaints, except as documented and leg edema Respiratory/Chest Respiratory/Chest: Reports systems reviewed and no addt'l complaints, except as documented and shortness of breath with exertion Gastrointestinal Gastrointestinal: Reports systems reviewed and no addt'l complaints, except as documented Psychiatric Psychiatric: Reports systems reviewed and no addt'l complaints, except as documented, anxiety and irritability Physical Exam Const alert, oriented x3 and no apparent distress General Appearance: Negative for disheveled Exam Limitations: physical limitations Nutritional Appearance: morbidly obese HEENT normocephalic and head/scalp atraumatic Nose: external nose normal and nares normal General Ear: hearing grossly impaired Eyes EOMs intact bilaterally and conjunctivae normal Neck full ROM, supple and no JVD Resp normal respiratory effort and clear to auscultation bilaterally Resp Narrative: diminished right lung lower lung cortés Effort and Inspection: able to speak in complete sentences Cardio regular rate and regular rhythm GI normal to inspection, nondistended, normoactive bowel sounds Extremity full ROM General Extremity: edema Neuro CN's II-XII intact bilaterally and moves all extremities Speech: speech normal Psych Attitude: calm Activity / Motor Behavior: appropriate eye contact Speech: normal speech Mood & Affect: anxious Thought Process: normal thought process Thought Content: normal thought content
[2021-08-20] MEDS: traZODone 100 MG Tablet PO (21:26)
[2021-08-20] MEDS: Atorvastatin Calcium 20 MG Tablet PO (21:26)
[2021-08-21] MEDS: Furosemide 20 MG Tablet 10 MG PO (05:51)
[2021-08-21] MEDS: busPIRone 5 MG Tablet 10 MG PO ×3 (05:51→21:00)
[2021-08-21] MEDS: Fluticasone/Salmeterol 232-14 Inhaler 1 PUFF INHALATION ×2 (05:52→17:24)
[2021-08-21] MEDS: Lisinopril 10 MG Tablet PO (05:52)
[2021-08-21] MEDS: Pantoprazole Sodium 20 MG Tablet PO (05:52)
[2021-08-21] MEDS: Cholecalciferol (VIT D3) 25 MCG TABLET (1,000 UNITS) PO (05:52)
[2021-08-21] MEDS: Senna/Docusate Sodium 1 Tablet 2 TABLET PO (08:53)
[2021-08-21] MEDS: Cyanocobalamin 500 MCG Tablet 1000 MCG PO (08:53)
[2021-08-21] MEDS: Aspirin E.C. 81 MG Tablet PO (08:53)
[2021-08-21] MEDS: Multivitamins,Therapeutic Tablet 1 TABLET PO (08:53)
[2021-08-21] MEDS: hydrOXYzine PAM 25 MG Capsule 50 MG PO ×2 (09:00→22:10)
[2021-08-21 11:55] VITALS: O2SAT 94
[2021-08-21 16:12] VITALS: BP 146/83; PULSE 86; RESP 18; TEMP 36.7; O2SAT 95
[2021-08-21] MEDS: Atorvastatin Calcium 20 MG Tablet PO (21:01)
[2021-08-21] MEDS: traZODone 100 MG Tablet PO (21:01)
[2021-08-21 22:49] VITALS: PULSE 90; RESP 16; O2SAT 94
[2021-08-22] MEDS: Lisinopril 10 MG Tablet PO (05:25)
[2021-08-22] MEDS: Furosemide 20 MG Tablet 10 MG PO (05:25)
[2021-08-22] MEDS: Cholecalciferol (VIT D3) 25 MCG TABLET (1,000 UNITS) PO (05:25)
[2021-08-22] MEDS: Pantoprazole Sodium 20 MG Tablet PO (05:25)
[2021-08-22] MEDS: busPIRone 5 MG Tablet 10 MG PO ×3 (05:25→21:32)
[2021-08-22] MEDS: Fluticasone/Salmeterol 232-14 Inhaler 1 PUFF INHALATION ×2 (05:27→17:57)
[2021-08-22 07:42] VITALS: O2SAT 96
[2021-08-22] MEDS: Multivitamins,Therapeutic Tablet 1 TABLET PO (08:17)
[2021-08-22] MEDS: Aspirin E.C. 81 MG Tablet PO (08:17)
[2021-08-22] MEDS: Cyanocobalamin 500 MCG Tablet 1000 MCG PO (08:17)
[2021-08-22 10:00] VITALS: PULSE 125; RESP 20; O2SAT 96
[2021-08-22 13:02] VITALS: BP 135/85; PULSE 96; RESP 18; TEMP 36.2; O2SAT 94
--- NOTE | 2021-08-22 18:36 | PCA ---
EDUCATION AND TRAINING COORDINATOR offered to help patient to get washed up for bed patient stated that they would wait until the morning. Patient is and ADL with therapy Monday and would rather wait
[2021-08-22] MEDS: traZODone 100 MG Tablet PO (21:32)
[2021-08-22] MEDS: Atorvastatin Calcium 20 MG Tablet PO (21:33)
--- NOTE | 2021-08-22 22:43 | NURSING ---
Spoke w/ Dr. Gil office via phone to update note left per previous shift that pt c/o voiding frequently, obtain a UA and C+S in addition to bladder scanning PRN.
--- NOTE | 2021-08-23 04:24 | NURSING ---
Per order, if pt emptying bladder, collect for ua, pt wants to try clean catch, states he will let us know when he needs to void next time.
[2021-08-23 04:27] VITALS: BP 132/73; PULSE 84
[2021-08-23] MEDS: Furosemide 20 MG Tablet 10 MG PO (04:27)
[2021-08-23] MEDS: busPIRone 5 MG Tablet 10 MG PO ×3 (04:27→21:51)
[2021-08-23] MEDS: Fluticasone/Salmeterol 232-14 Inhaler 1 PUFF INHALATION ×2 (04:27→21:46)
[2021-08-23] MEDS: Lisinopril 10 MG Tablet PO (04:28)
[2021-08-23] MEDS: Pantoprazole Sodium 20 MG Tablet PO (04:28)
[2021-08-23] MEDS: Cholecalciferol (VIT D3) 25 MCG TABLET (1,000 UNITS) PO (04:28)
[2021-08-23 05:52] LABS: Bacteria 0 SEEN /hpf (None Seen); Mucous, Urine 0 SEEN /hpf (<or=2+); Red Blood Cells-Urine 0 SEEN /hpf (0-5); Squamous Epithelial Cells - UA 0 SEEN /hpf (0-5); White Blood Cells 0 SEEN /hpf (0-5)
[2021-08-23 05:56] LABS: Color, Urine Yellow (Yellow); Glucose, Dipstick Normal (Normal); Ketone-Dipstick Negative (Negative); Leukocyte Esterase-Dipstick Negative /ul (Negative); Nitrite-Dipstick Negative (Negative); Occult Blood-Urine Negative /ul (Negative); Protein-Dipstick Negative (Negative); Urine Bilirubin Dipstick Negative (Negative); Urine Clarity Clear (Clear); Urine Urobilinogen Normal (Normal); Urine pH 6.5 (5.0 - 8.0)
[2021-08-23] MEDS: Cyanocobalamin 500 MCG Tablet 1000 MCG PO (08:54)
[2021-08-23] MEDS: Multivitamins,Therapeutic Tablet 1 TABLET PO (08:54)
[2021-08-23] MEDS: Aspirin E.C. 81 MG Tablet PO (08:56)
[2021-08-23] MEDS: hydrOXYzine PAM 25 MG Capsule 50 MG PO (08:56)
[2021-08-23 09:26] VITALS: O2SAT 92
[2021-08-23 13:40] VITALS: BP 145/88; PULSE 90; RESP 19; TEMP 36.6; O2SAT 92
[2021-08-23 16:35] VITALS: O2SAT 92
--- NOTE | 2021-08-23 16:48 | CHAPLAIN ---
Type of Pastoral Visit _x__ Initial Visit ___ Follow-up Visit ___ On-call Visit ___ General Patient Visit ___ Spiritual Assessment ___ Family Conference ___ Bereavement ___ Rapid Response ___ Code Blue ___ Other (describe below) Pastoral Care Referral From _x__ Patient ___ Family ___ Nurse ___ Physician ___ Graining Operator ___ Training Mgr ___ Other (describe below) Sacrament/Intervention _x__ Active listening ___ Anointing ___ Mandaen ___ Bereavement ___ Communion _x__ Madelyn exploration ___ _x__ Life review _x__ Prayer ___ Reconciliation ___ Sacrament of Sick _x__ Supportive presence ___ Wedding ___ Other (describe below) Pastoral Comments patient freely talked about his life, his family dynamics, his madelyn (renewed in 2007), and refers often to his greatest struggle - anxiety; patient given time to express himself and he received prayer and presence; pt would desire a future visit as I don't get visitors and it is helpful to speak about these things
[2021-08-23] MEDS: traZODone 100 MG Tablet PO (21:51)
[2021-08-23] MEDS: Atorvastatin Calcium 20 MG Tablet PO (21:52)
[2021-08-23 22:31] VITALS: PULSE 92; RESP 22; O2SAT 94
[2021-08-24] MEDS: Cholecalciferol (VIT D3) 25 MCG TABLET (1,000 UNITS) PO (05:43)
[2021-08-24] MEDS: Polyethylene Glycol 3350 17 GM PACKET PO (05:43)
[2021-08-24] MEDS: Lisinopril 10 MG Tablet PO (05:43)
[2021-08-24] MEDS: Furosemide 20 MG Tablet 10 MG PO (05:43)
[2021-08-24] MEDS: Pantoprazole Sodium 20 MG Tablet PO (05:43)
[2021-08-24] MEDS: busPIRone 5 MG Tablet 10 MG PO ×3 (05:43→21:18)
[2021-08-24] MEDS: Fluticasone/Salmeterol 232-14 Inhaler 1 PUFF INHALATION ×2 (05:46→16:43)
[2021-08-24 05:47] VITALS: BP 147/64; PULSE 95
--- NOTE | 2021-08-24 07:12 | CON.PCM_ITS ---
Assessment & Plan Assessment/Plan (1) Tinea unguium: (2) Toe pain, right: (3) Toe pain, left: PLAN: I reviewed the patient's case. The etiology of thickened toenails was briefly reviewed including fungus or microtrauma. The nails were debrided with a nail nipper after verbal consent was obtained without incident; 1,2,3,4,5. The nails were debrided in length and thickness to reduce pressure, potential fungal load, and to prevent wound formation. The patient tolerated this well. The patient elects proceed with palliative care only at this time with the nails and will hold off on further work-up. To follow-up with the foot and ankle Center if needed in the future for this condition. To wear protective and supportive shoes. To check feet daily and keep webspaces clean and dry. To moisturize skin to preserve skin integrity was also recommended. Thank you for the consultation. Please do not hesitate to call if you have any questions. Luisa Stewart DPM, [facility] [phone] HPI Consult Data Date of Consult: 08/24/21 HPI Narrative Reason for Consultation: Long thick toenails HPI Narrative: FARHEEN MERAZ, is a 81 M with significant past medical history of lung cancer and other comorbidities is residing in transitional care unit on a palliative care program for rehabilitation purposes. I saw him bedside this morning and he asked for help cutting his long and thick toenails in which he is unable to perform safely on his own. He reports his nails are moderately painful and they are aggravated with shoe gear use. He denies claudication or other concerns. He is very hard of hearing. [facility] Medical History Anxiety COPD (chronic obstructive pulmonary disease) Former smoker HLD (hyperlipidemia) Hypertension Lung cancer On home oxygen therapy Home Medications Spiriva with HandiHaler 2 puff INHALATION DAILY 01/25/16 [History Last Taken 01/25/16] Tums Ultra 1,177 mg PO PRN PRN 01/25/16 [History Last Taken 01/24/16] aspirin 81 mg PO DAILY@0800 01/25/16 [History Last Taken 01/25/16] budesonide-formoterol [Symbicort] 2 puff INHALATION BID 01/25/16 [History Last Taken 01/25/16] buspirone 10 mg PO TID 01/25/16 [History Last Taken 01/25/16] lisinopril 10 mg PO DAILY 01/25/16 [History Last Taken 01/25/16] multivitamin [Daily Multiple] 1 ea PO DAILY 01/25/16 [History Last Taken 01/25/16] omeprazole 20 mg PO DAILY 01/25/16 [History Last Taken 01/25/16] simvastatin 40 mg PO QHS 01/25/16 [History Last Taken 01/24/16] alprazolam 0.25 mg PO TID PRN PRN #0 01/29/16 [Rx Last Taken 01/24/16] levalbuterol tartrate [Xopenex HFA] 1 puff INHALATION Q4H PRN #1 inh 01/29/16 [Rx Last Taken Unknown] albuterol 2 mcg INHALATION 4X/DAY 08/18/21 [History Last Taken Unknown] azithromycin 500 mg PO Q24 08/18/21 [History Last Taken Unknown] bisacodyl 5 mg PO BID PRN 08/18/21 [History Last Taken Unknown] cyanocobalamin (vitamin B-12) 1,000 mcg PO DAILY 08/18/21 [History Last Taken Unknown] furosemide [Lasix] 10 mg PO DAILY 08/18/21 [History Last Taken Unknown] hydroxyzine pamoate 50 mg PO 4X/DAY 08/18/21 [History Last Taken Unknown] mometasone 2 puff INHALATION BID 08/18/21 [History Last Taken Unknown] prednisone 10 mg PO DAILY 08/18/21 [History Last Taken Unknown] trazodone 100 mg PO QHS 08/18/21 [History Last Taken Unknown] Allergy/AdvReac Type Severity Reaction Status Date / Time No Known Allergies Allergy Verified 01/25/16 16:05 Surgical History History of lobectomy of lung Social History household members: spouse Smoking Status: Former smoker alcohol intake: never substance use type: does not use Physical Exam Const alert General Appearance: cooperative HEENT normocephalic Extremity Extremity Narrative: No calf tenderness Diminished pulses Muscle wasting noted General Extremity: edema and no tenderness to palpation of joints or extremities; Negative for cyanosis Skin Skin Narrative: no purulence, no streaking, no odor, no infection. No ulcers bilateral. No interdigital maceration bilateral. Toenails are elongated, thick, dystrophic with subungual debris and mild incurvation to the medial lateral borders of bilateral foot 1, 2, 3, 4, fifth digits General Skin Exam: Negative for erythema Neuro Neuro Narrative: lack of normal epicritic sensation via light touch is consistent with neuropathy status Psych cooperative and affect normal Lab / Micro Data Result Diagrams: 08/19/21 05:26 08/20/21 05:22
[2021-08-24 07:30] VITALS: O2SAT 93
[2021-08-24] MEDS: Aspirin E.C. 81 MG Tablet PO (08:19)
[2021-08-24] MEDS: Multivitamins,Therapeutic Tablet 1 TABLET PO (08:22)
[2021-08-24] MEDS: Cyanocobalamin 500 MCG Tablet 1000 MCG PO (08:22)
[2021-08-24 15:21] VITALS: BP 110/62; PULSE 92; RESP 16; TEMP 36.6; O2SAT 97
[2021-08-24] MEDS: Atorvastatin Calcium 20 MG Tablet PO (21:18)
[2021-08-24] MEDS: traZODone 100 MG Tablet PO (21:18)
[2021-08-25] MEDS: busPIRone 5 MG Tablet 10 MG PO ×3 (06:28→20:32)
[2021-08-25] MEDS: Furosemide 20 MG Tablet 10 MG PO (06:28)
[2021-08-25] MEDS: Lisinopril 10 MG Tablet PO (06:28)
[2021-08-25] MEDS: Cholecalciferol (VIT D3) 25 MCG TABLET (1,000 UNITS) PO (06:29)
[2021-08-25] MEDS: Pantoprazole Sodium 20 MG Tablet PO (06:29)
[2021-08-25] MEDS: Fluticasone/Salmeterol 232-14 Inhaler 1 PUFF INHALATION ×2 (06:31→17:30)
[2021-08-25] MEDS: Aspirin E.C. 81 MG Tablet PO (07:54)
[2021-08-25] MEDS: Multivitamins,Therapeutic Tablet 1 TABLET PO (07:54)
[2021-08-25] MEDS: Cyanocobalamin 500 MCG Tablet 1000 MCG PO (07:54)
[2021-08-25 08:07] VITALS: O2SAT 95
--- NOTE | 2021-08-25 10:52 | CASEMGMT ---
Social Work IDT met with patient and granddaughter via conference call for care plan meeting. Discussed patient's progress in PT/OT/ST and nursing. Pt progressing well. Explained [facility] insurance with [employer] 08/27 and to anticipate DC date being issued. Explained and provided insurance care plan meeting with [facility] 09/01. Pt will DC home with Palliative and HHC services. SW to set up once DC date is set. Reiterated to gddtr to discuss with [facility] other interventions to assist with anxiety and possibly applying for disability to access further resources. Pt's anxiety is debilitating to day to day life and questioning medications. Explained [facility] psychiatrist manages medications and Dr. Gil will not make any changes to that. Encouraged to set up appt with the [facility] to go over medication changes and increased symptoms. Explained [facility] to assist with transportation and counseling services. Encouraged gddtr to speak with [facility] to see what other services pt has access to. Inquired about DC plans as pt unsure about going home with as they have a poor relationship, per pt he wants more time to be away from . Encouraged to discuss with grdtr to figure out best plan going home. Gddtr stated this has been going on for 30 years and they have separate bedrooms and living quarters. Pt wants to remain in TCU longer but explained pt is doing well physically and insurance dictates DC. Encouraged to start preparing self for DC date around 09/01. Pt continued to perseverate on anxiety. Pt is also very hard of hearing and cognitive deficits. Encouraged dtr to ask the [facility] about hearing aids that will help pt. Pt states he has hearing aids currently but does not work. SW to offer ongoing support and assistance as able. Telma Smith, RAFITA LOPEZW
[2021-08-25 13:23] VITALS: BP 158/92; PULSE 95; RESP 18; TEMP 36.3; O2SAT 93
--- NOTE | 2021-08-25 13:40 | CASEMGMT ---
Social Work Received correspondence from Loading Unit Operator Powder Charging about message left from pt's Gurmeet MONTILLA with the following: Gurmeet MONTILLA who has been working with pt prior to admission. ROLDAN wanted to communicate the following so we were aware for his discharge plan: 1.Pt has difficulty securing transportation to attend physician visits. Due to bowel issues, he has not wanted to use the [facility] transportation. His daughter provides transportation but this is limited to the local area. 2.They were working on getting him a visiting physician so that he did not have to go out for appointments. 3.Issues they identified were: podiatry, personal care, and med set-up. 4.Hearing aids: these were going to be sent to the [facility] to be repaired but the CM was not able to get a hold of the pt to coordinate. 5.ROLDAN Pedro can be reached at [phone] Left message with Mayela explaining those items were identified and discussed at the pt's care plan meeting. This worker encouraged granddaughter to follow up for pt. Provided CM this worker's direct contact information. RAFITA Toro
[2021-08-25 16:20] VITALS: PULSE 88; RESP 18; O2SAT 93
[2021-08-25] MEDS: hydrOXYzine PAM 25 MG Capsule 50 MG PO (17:34)
[2021-08-25] MEDS: traZODone 100 MG Tablet PO (20:32)
[2021-08-25] MEDS: Atorvastatin Calcium 20 MG Tablet PO (20:32)
[2021-08-26] MEDS: busPIRone 5 MG Tablet 10 MG PO ×3 (05:36→21:09)
[2021-08-26] MEDS: Furosemide 20 MG Tablet 10 MG PO (05:36)
[2021-08-26] MEDS: Fluticasone/Salmeterol 232-14 Inhaler 1 PUFF INHALATION ×2 (05:36→17:47)
[2021-08-26] MEDS: Lisinopril 10 MG Tablet PO (05:38)
[2021-08-26] MEDS: Pantoprazole Sodium 20 MG Tablet PO (05:38)
[2021-08-26] MEDS: Cholecalciferol (VIT D3) 25 MCG TABLET (1,000 UNITS) PO (05:38)
[2021-08-26 05:52] LABS: Absolute Lymphocyte Count 2.97 X10^3/uL (0.83-4.51); Absolute Neutrophil Count 3.9 X10^3/uL (2.0-7.7); Basophil# 0.05 X10^3/uL; Basophil% 0.7 % (0-1); Eosinophil# 0.17 X10^3/uL; Eosinophils% 2.2 % (0-5); Hematocrit 36.4 % (40-54); Hemoglobin 12.1 g/dL (13.0-16.5); Lymphocyte # 2.97 X10^3/ul (0.83-4.51); Lymphocyte % 38.8 % (19-41); Mean Corp Hgb Conc 33.2 g/dL (32-36); Mean Corpuscular Volume 96.3 fL (80-94); Mean Platelet Vol. 9.4 fl (6.2-12.0); Monocyte# 0.56 X10^3/uL; Monocyte% 7.3 % (0-10); NRBC Flagged by Analyzer 0 % (0-5); Neutrophil # 3.87 X10^3/uL (2.7-7.7); Neutrophil % 50.5 % (47-70); Platelet Count 239 K/mm3 (150-450); RBC Distribution Width CV 13.5 % (11.6-14.6); RBC Distribution Width SD 47.8 fl (35.1-43.9); Red Blood Count 3.78 M/mm3 (4.6-6.2); White Blood Count 7.7 K/mm3 (4.4-11.0)
[2021-08-26 06:29] LABS: Anion Gap 2 (5-15); BUN 13 mg/dL (7-18); BUN/Creat Ratio 12.1 RATIO (10-20); Calcium,Total 8.6 mg/dL (8.5-10.1); Chloride 102 mmol/L (98-107); Creatinine, Serum 1.07 mg/dL (0.70-1.30); EST Glomerular Filtration Rate 71 mL/min (>60); Est Glom Filt Rate - Afr Amer 86 mL/min (>60); Estimated Creatinine Clearance 54.16 ml/min; Glucose 113 mg/dL (74-106); Potassium 3.9 mmol/L (3.5-5.1); Sodium Level 140 mmol/L (136-145)
--- NOTE | 2021-08-26 06:54 | NURSING ---
Patient voiding via toilet. Post void residual of 122 this AM.
[2021-08-26] MEDS: Multivitamins,Therapeutic Tablet 1 TABLET PO (08:09)
[2021-08-26] MEDS: Cyanocobalamin 500 MCG Tablet 1000 MCG PO (08:09)
[2021-08-26] MEDS: Aspirin E.C. 81 MG Tablet PO (08:09)
[2021-08-26 08:30] VITALS: O2SAT 96
--- NOTE | 2021-08-26 08:41 | CASEMGMT ---
Social Work Received email correspondence from [employer] insurance reviewer requesting this worker speak with gddtr about Medicaid for SNF, per gddtr request. Spoke with gddtr and confirmed request for SNF Medicaid. Gddtr is stating pt would like to have more time in a facility and understands insurance will not cover that. Explained Medicaid application and pending number/SNF process. Emailed Medicaid application and SNF list. Gddtr requesting [facility] and [facility] referrals thus far. Explained [facility] had a main water break and is not accepting referrals at this time, but will contact [facility]. Also, HCPOA is not on file and requested gddtr provide that to this worker. Contacted Kina at [facility]. They are out of network with [employer] but can run those benefits for Part B therapies, and would be able to accept MCDP# with [facility] 08/30. Referral made. SW to continue to follow. Telma Smith, TRAINMAN WHEEL INSPECTOR
[2021-08-26] MEDS: Tuberculin,Purif.prot.deriv. 50 TU/ML Vial 0.1 ML ID (10:23)
[2021-08-26] MEDS: Senna/Docusate Sodium 1 Tablet 2 TABLET PO (10:28)
[2021-08-26 14:07] VITALS: BP 142/88; PULSE 91; RESP 18; TEMP 36.2; O2SAT 99
--- NOTE | 2021-08-26 16:45 | NURSING ---
Resident and granddaughter, Elzbieta, notified of 2 residents testing positive for COVID.
[2021-08-26] MEDS: Atorvastatin Calcium 20 MG Tablet PO (21:09)
[2021-08-26] MEDS: traZODone 100 MG Tablet PO (21:09)
[2021-08-26 23:13] VITALS: PULSE 88; RESP 18; O2SAT 94
[2021-08-27] MEDS: Fluticasone/Salmeterol 232-14 Inhaler 1 PUFF INHALATION ×2 (04:36→17:22)
[2021-08-27] MEDS: Polyethylene Glycol 3350 17 GM PACKET PO (04:36)
[2021-08-27] MEDS: Cholecalciferol (VIT D3) 25 MCG TABLET (1,000 UNITS) PO (04:36)
[2021-08-27] MEDS: Lisinopril 10 MG Tablet PO (04:36)
[2021-08-27] MEDS: Pantoprazole Sodium 20 MG Tablet PO (04:36)
[2021-08-27] MEDS: busPIRone 5 MG Tablet 10 MG PO ×3 (04:36→20:19)
[2021-08-27] MEDS: Furosemide 20 MG Tablet 10 MG PO (04:37)
[2021-08-27 05:34] VITALS: BP 120/80; PULSE 105
[2021-08-27 07:33] VITALS: O2SAT 92
[2021-08-27] MEDS: Aspirin E.C. 81 MG Tablet PO (07:45)
[2021-08-27] MEDS: Multivitamins,Therapeutic Tablet 1 TABLET PO (07:45)
[2021-08-27] MEDS: Cyanocobalamin 500 MCG Tablet 1000 MCG PO (07:45)
--- NOTE | 2021-08-27 11:12 | CASEMGMT ---
Social Work Faxed completed Medicaid application to [facility]. Telma Smith, WEFT STRAIGHTENER EDITOR SCHOOL PHOTOGRAPH
--- NOTE | 2021-08-27 14:05 | CASEMGMT ---
Addendum entered by Telma Smith 08/27/21 14:14: Updated Palliative care on DC date. Original Note: Social Work Insurance issued LCD 08/30, DC 08/31. Pt snoring asleep in room. Contacted gddtr to update. Inquired about DC plan. Gddtr spoke with [facility] and they can accept but pt would have to pay privately if [employer] does not approve. Explained [employer] would not be processed by the time of DC. Gddtr stated then he will go home. SW asked preference of HHC agency. She [facility]. Referral made for PT/OT/ST/SN/HUYNH. Gddtr to transport home. Pt needs a FWW. Referral made to [facility]. Plan: DC home 08/31, [facility] PT/OT/ST/SN/HUYNH, FWW Telma Smith, LEARNING SUPPORT RESOURCE ROOM TEACHER TITLE INVESTIGATOR
[2021-08-27 14:29] VITALS: BP 103/69; PULSE 97; RESP 16; TEMP 36.7; O2SAT 98
--- NOTE | 2021-08-27 14:37 | DS.PCM_ITS ---
Providers Date of Admission: 08/18/21 Primary Care Physician: [facility] Consultations 08/20/21 13:07 Consult: Podiatry Routine Consulting Provider: Tyler Gibson Reason for Consult: General foot care. EMERGENT Consult: No MD Notified: Yes Date Notified: 08/20/21 Time Notified: 13:07 Method of Notification: Answering Service Reason For Visit: HYPOXIA/WEAKNESS Diagnosis Discharge Diagnosis (1) Tinea unguium: Status: Acute Code(s): B35.1 - Tinea unguium (2) Toe pain, right: Status: Acute Code(s): M79.674 - Pain in right toe(s) (3) Toe pain, left: Status: Acute Code(s): M79.675 - Pain in left toe(s) Medications at Discharge Home Medications Spiriva with HandiHaler 2 puff INHALATION DAILY 01/25/16 Tums Ultra 1,177 mg PO PRN PRN 01/25/16 aspirin 81 mg PO DAILY@0800 01/25/16 budesonide-formoterol [Symbicort] 2 puff INHALATION BID 01/25/16 buspirone 10 mg PO TID 01/25/16 lisinopril 10 mg PO DAILY 01/25/16 multivitamin [Daily Multiple] 1 ea PO DAILY 01/25/16 omeprazole 20 mg PO DAILY 01/25/16 simvastatin 40 mg PO QHS 01/25/16 alprazolam 0.25 mg PO TID PRN PRN #0 01/29/16 levalbuterol tartrate [Xopenex HFA] 1 puff INHALATION Q4H PRN #1 inh 01/29/16 albuterol 2 mcg INHALATION 4X/DAY 08/18/21 bisacodyl 5 mg PO BID PRN 08/18/21 cyanocobalamin (vitamin B-12) 1,000 mcg PO DAILY 08/18/21 furosemide [Lasix] 10 mg PO DAILY 08/18/21 hydroxyzine pamoate 50 mg PO 4X/DAY 08/18/21 mometasone 2 puff INHALATION BID 08/18/21 trazodone 100 mg PO QHS 08/18/21 Hospital Course Operations None Procedures None Summary of Care Provided Minutes Spent on Discharge: 35 Hospital Course: 81 year old male with below past medical history significant for copd, anxiety, presented to [facility] ER with shortness of breath after home oxygen equipment failure, admitted to TCU with debility, here for rehabilitation, strengthening, prior to discharge home with . Discharge home alone 08/31/2021, [facility] PT/OT/ST/SN/[facility], Front wheeled walker. Physical Exam Const alert and oriented x3 General Appearance: cooperative HEENT normocephalic Eyes PERRL and EOMs intact bilaterally Neck supple, no JVD and no carotid bruits Resp normal respiratory effort, normal air movement and clear to auscultation bilaterally Cardio regular rate and regular rhythm GI normal to inspection, nondistended, normoactive bowel sounds, non-tender and non-distended Extremity normal capillary refill General Extremity: Negative for edema Skin no rashes or lesions noted General Skin Exam: no breakdown Psych affect normal Appearance: appropriate Weight / BMI Weight Weight: 107.411 kg Body Mass Index (BMI) 36.0 ABG / Lab / Microbiology Data Result Diagrams: 08/26/21 05:39 08/26/21 05:39 Microbiology: Microbiology 08/26/21 12:25 Nasal Secretion SARS-CoV-2 Antigen (Rapid) - Final 08/25/21 Unknown Nasal Secretion SARS-CoV-2 Antigen (Rapid) - Final 08/23/21 05:40 Urine, Clean Catch Urine Culture - Final Culture exhibits no growth. D/C Instructions Discharge Diet: No restrictions Discharge Activity: Return to Normal Activity, May Shower and Use Walker Weight Bearing Status: Weight bearing as tolerated Call your doctor if you observe: Fever of 101 or Higher, Inability to urinate, Inability to have a bowel movement, Shortness of breath, Dizziness, Fainting spells, Swelling in the ankles, Chest pain and Uncontrolled pain Additional Instructions: Discharge home alone 08/31/2021, [facility] PT/OT/ST/SN/[facility], Front wheeled walker. Meaningful Use Info Meaningful Use Diagnoses (Choose all that apply): None applicable Discharge Plan Admission Admit Date/Time: 08/18/21 13:00 Primary Reason for Your Visit: Debility. Attending Provider: Geovany Gil Chi Primary Care Provider: [facility] Consulting Providers: Tyler Gibson Instructions Additional Instructions / Restrictions: Discharge home alone 08/31/2021, [facility] PT/OT/ST/SN/HUY[facility], Front wheeled walker. Discharge Orders/Prescriptions Prescriptions: Continued buspirone 5 MG tablet 10 mg PO TID RF: 0 aspirin 325 MG tablet 81 mg PO DAILY@0800 RF: 0 simvastatin 40 MG tablet 40 mg PO QHS RF: 0 lisinopril 10 MG tablet 10 mg PO DAILY RF: 0 omeprazole 20 MG capsule 20 mg PO DAILY RF: 0 Spiriva with HandiHaler 1 PUFF inhaler 2 puff inhalation DAILY RF: 0 Tums Ultra 1,177 MG tablet,chewable 1,177 mg PO PRN PRN (Reason: GERD) RF: 0 budesonide-formoterol [Symbicort] 1 INHALER inhaler 2 puff inhalation BID RF: 0 multivitamin [Daily Multiple] 1 EACH tablet 1 ea PO DAILY RF: 0 levalbuterol tartrate [Xopenex HFA] 1 PUFF HFA aerosol inhaler 1 puff inhalation Q4H PRN (Reason: Sob &/Or Wheezing) Qty: 1 RF: 0 alprazolam 0.25 MG tablet 0.25 mg PO TID PRN PRN (Reason: Anxiety) Qty: 0 RF: 0 cyanocobalamin (vitamin B-12) 1,000 mcg Tablet 1,000 mcg PO DAILY RF: 0 hydroxyzine pamoate 50 mg Capsule 50 mg PO 4X/DAY RF: 0 trazodone 100 mg Tablet 100 mg PO QHS RF: 0 furosemide [Lasix] 20 mg Tablet 10 mg PO DAILY RF: 0 albuterol 90 mcg/actuation Aerosol 2 mcg INHALATION 4X/DAY RF: 0 bisacodyl 5 mg Tablet 5 mg PO BID PRN (Reason: Constipation) RF: 0 mometasone 200 mcg/actuation Hfa Aerosol Inhaler 2 puff INHALATION BID RF: 0 Discontinued azithromycin 250 MG tablet 500 mg PO Q24 RF: 0 prednisone 10 MG tablets,dose pack 10 mg PO DAILY RF: 0 Referrals / Follow Up: Luisa Stewart DPM [STAFF PHYSICIAN] - See Referral Note (as needed for foot and ankle concerns or for toenail care) [facility] [Primary Care Provider] - Disposition Disposition (needs filled in before D/C Order can be placed): Home Health Service
[2021-08-27] MEDS: traZODone 100 MG Tablet PO (20:19)
[2021-08-27] MEDS: Atorvastatin Calcium 20 MG Tablet PO (20:19)
[2021-08-27] MEDS: hydrOXYzine PAM 25 MG Capsule 50 MG PO (20:20)
[2021-08-28] MEDS: Lisinopril 10 MG Tablet PO (05:22)
[2021-08-28] MEDS: busPIRone 5 MG Tablet 10 MG PO ×3 (05:22→20:36)
[2021-08-28] MEDS: Furosemide 20 MG Tablet 10 MG PO (05:22)
[2021-08-28] MEDS: Polyethylene Glycol 3350 17 GM PACKET PO (05:22)
[2021-08-28] MEDS: Fluticasone/Salmeterol 232-14 Inhaler 1 PUFF INHALATION ×2 (05:22→17:24)
[2021-08-28] MEDS: Cholecalciferol (VIT D3) 25 MCG TABLET (1,000 UNITS) PO (05:22)
[2021-08-28] MEDS: Pantoprazole Sodium 20 MG Tablet PO (05:22)
[2021-08-28] MEDS: Cyanocobalamin 500 MCG Tablet 1000 MCG PO (08:39)
[2021-08-28] MEDS: Aspirin E.C. 81 MG Tablet PO (08:39)
[2021-08-28] MEDS: Multivitamins,Therapeutic Tablet 1 TABLET PO (08:39)
[2021-08-28] MEDS: hydrOXYzine PAM 25 MG Capsule 50 MG PO (08:44)
[2021-08-28 10:50] VITALS: PULSE 93; O2SAT 96
[2021-08-28 11:10] VITALS: O2SAT 94
[2021-08-28 14:40] VITALS: BP 100/58; PULSE 90; RESP 20; TEMP 36.5; O2SAT 97
--- NOTE | 2021-08-28 16:16 | NURSING ---
PT GETTING HAIR DONE AT THIS TIME BY [facility] BEAUTICIAN
[2021-08-28] MEDS: Bisacodyl 5 MG Tablet PO (18:21)
[2021-08-28] MEDS: traZODone 100 MG Tablet PO (20:36)
[2021-08-28] MEDS: Atorvastatin Calcium 20 MG Tablet PO (20:36)
[2021-08-29] MEDS: Fluticasone/Salmeterol 232-14 Inhaler 1 PUFF INHALATION ×2 (05:15→17:05)
[2021-08-29] MEDS: Polyethylene Glycol 3350 17 GM PACKET PO (05:15)
[2021-08-29] MEDS: Cholecalciferol (VIT D3) 25 MCG TABLET (1,000 UNITS) PO (05:17)
[2021-08-29] MEDS: busPIRone 5 MG Tablet 10 MG PO ×3 (05:17→20:36)
[2021-08-29] MEDS: Pantoprazole Sodium 20 MG Tablet PO (05:17)
[2021-08-29] MEDS: Furosemide 20 MG Tablet 10 MG PO (05:17)
[2021-08-29] MEDS: Lisinopril 10 MG Tablet PO (05:17)
[2021-08-29] MEDS: Senna/Docusate Sodium 1 Tablet 2 TABLET PO (05:19)
[2021-08-29 05:20] VITALS: BP 175/78; PULSE 93
[2021-08-29] MEDS: Cyanocobalamin 500 MCG Tablet 1000 MCG PO (07:48)
[2021-08-29] MEDS: Multivitamins,Therapeutic Tablet 1 TABLET PO (07:48)
[2021-08-29] MEDS: Aspirin E.C. 81 MG Tablet PO (07:48)
[2021-08-29] MEDS: hydrOXYzine PAM 25 MG Capsule 50 MG PO ×2 (11:41→20:49)
[2021-08-29 14:09] VITALS: BP 109/63; PULSE 93; RESP 19; TEMP 36.8; O2SAT 96
[2021-08-29 14:50] VITALS: O2SAT 96
[2021-08-29] MEDS: traZODone 100 MG Tablet PO (20:37)
[2021-08-29] MEDS: Atorvastatin Calcium 20 MG Tablet PO (20:37)
[2021-08-30] MEDS: Lisinopril 10 MG Tablet PO (05:25)
[2021-08-30] MEDS: Cholecalciferol (VIT D3) 25 MCG TABLET (1,000 UNITS) PO (05:25)
[2021-08-30] MEDS: busPIRone 5 MG Tablet 10 MG PO ×3 (05:25→21:26)
[2021-08-30] MEDS: Pantoprazole Sodium 20 MG Tablet PO (05:25)
[2021-08-30] MEDS: Furosemide 20 MG Tablet 10 MG PO (05:25)
[2021-08-30] MEDS: Polyethylene Glycol 3350 17 GM PACKET PO (05:26)
[2021-08-30] MEDS: Fluticasone/Salmeterol 232-14 Inhaler 1 PUFF INHALATION ×2 (05:28→16:25)
--- NOTE | 2021-08-30 08:01 | MDS.RN ---
Information for the mds was obtained from review of the clinical record, interview of resident, staff, and direct observation of resident's care.
[2021-08-30] MEDS: Multivitamins,Therapeutic Tablet 1 TABLET PO (08:47)
[2021-08-30] MEDS: Aspirin E.C. 81 MG Tablet PO (08:47)
[2021-08-30] MEDS: Cyanocobalamin 500 MCG Tablet 1000 MCG PO (08:47)
[2021-08-30 12:42] VITALS: O2SAT 95
[2021-08-30 14:44] VITALS: BP 149/82; PULSE 90; RESP 18; TEMP 36.3; O2SAT 95
[2021-08-30] MEDS: hydrOXYzine PAM 25 MG Capsule 50 MG PO (19:44)
[2021-08-30] MEDS: Atorvastatin Calcium 20 MG Tablet PO (21:27)
[2021-08-30] MEDS: traZODone 100 MG Tablet PO (21:27)
[2021-08-31] MEDS: Polyethylene Glycol 3350 17 GM PACKET PO (06:36)
[2021-08-31] MEDS: Lisinopril 10 MG Tablet PO (06:37)
[2021-08-31] MEDS: Pantoprazole Sodium 20 MG Tablet PO (06:37)
[2021-08-31] MEDS: busPIRone 5 MG Tablet 10 MG PO (06:37)
[2021-08-31] MEDS: Furosemide 20 MG Tablet 10 MG PO (06:37)
[2021-08-31] MEDS: Cholecalciferol (VIT D3) 25 MCG TABLET (1,000 UNITS) PO (06:38)
[2021-08-31 06:39] VITALS: BP 134/67; PULSE 88
[2021-08-31] MEDS: Fluticasone/Salmeterol 232-14 Inhaler 1 PUFF INHALATION (06:39)
[2021-08-31] MEDS: Cyanocobalamin 500 MCG Tablet 1000 MCG PO (08:13)
[2021-08-31] MEDS: Aspirin E.C. 81 MG Tablet PO (08:13)
[2021-08-31] MEDS: Multivitamins,Therapeutic Tablet 1 TABLET PO (08:13)
[2021-08-31 10:00] VITALS: PULSE 96; RESP 20; O2SAT 90
[2021-08-31 11:03] VITALS: BP 143/84; PULSE 96; RESP 20; TEMP 36.8; O2SAT 90
== END 2021-08-31 11:04 | disposition home health service (06) | DRG 190 ==
PROVIDERS: Admitting Provider Family Medicine Geriatric Medicine; Visit Provider Family Medicine Geriatric Medicine
DX: J44.9 Chronic obstructive pulmonary disease, unspecified (principal); J96.01 Acute respiratory failure with hypoxia; B35.1 Tinea unguium; M79.674 Pain in right toe(s); E53.8 Deficiency of other specified B group vitamins; E55.9 Vitamin D deficiency, unspecified; I10 Essential (primary) hypertension; E78.5 Hyperlipidemia, unspecified; F41.9 Anxiety disorder, unspecified; K21.9 Gastro-esophageal reflux disease without esophagitis; M79.675 Pain in left toe(s); Z99.81 Dependence on supplemental oxygen; Z87.891 Personal history of nicotine dependence; Z79.82 Long term (current) use of aspirin; Z79.51 Long term (current) use of inhaled steroids; Z79.899 Other long term (current) drug therapy; Z85.118 Personal history of other malignant neoplasm of bronchus and lung
CPT/HCPCS: 36415; 80048; 81001; 85025; 87086; 87426; 92507; 92523; 92610; 97110; 97116; 97162; 97166; 97530; 97535; 97802; A4216